=== PATIENT | male | born 1940 | race Caucasian/White ===

== ENCOUNTER 2018-07-31 22:28 | Emergency (ER) | payer OTHER, MEDICARE ==
[~2018-07-31] VITALS: Ht 180.3 cm; Wt 90.7 kg
[~2018-07-31 22:28] MED LIST: INSU100V9 SUBCUT; INSU10VI4 SUBCUT; OMEP40CA33 PO
[2018-07-31 22:32] VITALS: BP_SYST 160
[2018-07-31] MEDS ORDERED: NACL 0.9% 1,000 ML IV ONE (22:45)
[2018-07-31] MEDS ORDERED: DEXTROSE 50% JECT 50 ML DISP.SYRIN IVP ONE (22:45)
[2018-07-31 22:56] LABS: BASOPHILS # (AUTO) 0.1 K/uL (0.0-0.2); BASOPHILS % (AUTO) 0.8 % (0.0-2.0); EOSINOPHILS # (AUTO) 0.5 K/uL (0.0-0.4); EOSINOPHILS % (AUTO) 6.1 % (0.0-4.0); HEMATOCRIT 37.8 % (36-54); HEMOGLOBIN 12.3 g/dL (14.0-18.0); LYMPHOCYTES # (AUTO) 1.8 K/uL (1.0-5.5); LYMPHOCYTES % (AUTO) 21.9 % (20.5-51.5); MEAN CORPUSCULAR HEMOGLOBIN 30 pg (27-31); MEAN CORPUSCULAR HGB CONC 33 % (32-36); MEAN CORPUSCULAR VOLUME 92 fL (79.0-98.0); MONOCYTES # (AUTO) 0.8 K/uL (0.0-1.0); MONOCYTES % (AUTO) 9.9 % (1.7-9.3); NEUTROPHILS % (AUTO) 61.3 % (40.0-70.0); PLATELET COUNT (AUTO) 263 K/uL (130-430); RED BLOOD CELL COUNT(AUTO) 4.09 MIL/uL (4.2-6.2); RED CELL DISTRIBUTION WIDTH 13.6 % (9.0-15.0); WHITE BLOOD COUNT (AUTO) 8.2 K/uL (4.8-10.8)
[2018-07-31 23:12] LABS: ANION GAP 5 (5-15); CALCIUM 9.3 mg/dL (8.4-11.0); CHLORIDE 105 mmol/L (98-107); CREATININE 1.18 mg/dL (0.55-1.30); GLUCOSE 64 mg/dL (70-99); POTASSIUM 4.2 mmol/L (3.5-5.1); SODIUM SERUM 139 mmol/L (136-145); UREA NITROGEN, BLOOD 21 mg/dL (8-21)
[2018-07-31 23:17] LABS: ALANINE AMINOTRANSFERASE 34 U/L (12-78); ALBUMIN 3.6 g/dL (3.4-4.8); ASPARTATE AMINOTRANSFERASE 20 U/L (10-37); TOTAL BILIRUBIN 0.3 mg/dL (0.0-1.0)
[2018-08-01 00:41] LABS: BILIRUBIN,URINE NEGATIVE (NEGATIVE); BLOOD, URINE NEGATIVE (NEGATIVE); CLARITY/URINE CLEAR (CLEAR); COLOR,URINE YELLOW (YELLOW); GLUCOSE,URINE TRACE (NEGATIVE); KETONES,URINE NEGATIVE (NEGATIVE); LEUKOCYTE ESTERASE ,URINE NEGATIVE (NEGATIVE); NITRITE, URINE NEGATIVE (NEGATIVE); PROTEIN URINE NEGATIVE (NEGATIVE); UROBILINOGEN,URINE 0.2 (0.2-1.0)
[2018-08-01] MEDS ORDERED: DEXTROSE 50% JECT 50 ML DISP.SYRIN ONE (01:45)
[2018-08-01] MEDS ORDERED: DEXTROSE 50% JECT 50 ML DISP.SYRIN IVP ONE (01:45)
[2018-08-01 02:44] LABS: ANION GAP 8 (5-15); CALCIUM 9.3 mg/dL (8.4-11.0); CHLORIDE 106 mmol/L (98-107); CREATININE 1.08 mg/dL (0.55-1.30); GLUCOSE 149 mg/dL (70-99); POTASSIUM 4.4 mmol/L (3.5-5.1); SODIUM SERUM 139 mmol/L (136-145); UREA NITROGEN, BLOOD 22 mg/dL (8-21)
[2018-08-01 04:18] VITALS: BP_SYST 142
== END 2018-08-01 04:18 | disposition home or self-care (01) ==
LOC: SED 22:28
DX: E10.649 Type 1 diabetes mellitus with hypoglycemia without coma (principal); R03.0 Elevated blood-pressure reading, without diagnosis of hypertension; Z79.4 Long term (current) use of insulin
CPT/HCPCS: 36415; 80048; 80053; 81003; 85025; 96361; 96374; 96375; 99284; J7030